=== PATIENT | male | born 1970 | race American Indian/Alaskan Native ===

== ENCOUNTER 2017-11-03 02:25 | Emergency (ER) | payer OTHER ==
[2017-11-03 02:59] VITALS: BP 121/76
[2017-11-03 04:14] LABS: Basophils % (Auto) 0.6 % (0.0-1.8); Eosinophils # (Auto) 0.1 K/mm3 (0.0-0.4); Eosinophils % (Auto) 1.5 % (0.0-4.3); Hematocrit 51.2 % (35.5-45.6); Hemoglobin 17.2 gm/dl (11.8-15.2); Lymphocytes # (Auto) 3.2 K/mm3 (1.2-5.4); Lymphocytes % (Auto) 37.7 % (13.4-35.0); Mean Corpuscular HGB Conc 34 % (32-34); Mean Corpuscular Hemoglobin 30 pg (28-32); Mean Corpuscular Volume 89 fl (84-94); Monocytes # (Auto) 1.3 K/mm3 (0.0-0.8); Monocytes % (Auto) 15.3 % (0.0-7.3); Platelet Count 203 K/mm3 (140-440); Red Blood Count 5.73 M/mm3 (3.65-5.03); Red Cell Distribution Width 13.4 % (13.2-15.2)
[2017-11-03 04:38] LABS: BUN/Creatinine Ratio 16; Blood Urea Nitrogen 21 mg/dL (9-20); Calcium 8.3 mg/dL (8.4-10.2); Hemolysis Index 42
== END 2017-11-03 04:12 | disposition left against medical advice (07) ==
LOC: ED 02:25
DX: R25.2 Cramp and spasm (principal); Z53.21 Procedure and treatment not carried out due to patient leaving prior to being seen by health care provider
CPT/HCPCS: 36415; 80048; 85025

== ENCOUNTER 2017-12-15 12:31 | Emergency (ER) | payer OTHER ==
[2017-12-15 14:27] VITALS: BP 119/80
--- NOTE | 2017-12-15 15:05 | Emergency Department Report ---
ED Extremity Problem HPI - General Chief complaint: Extremity Injury, Lower Stated complaint: ANKLE PAIN Time Seen by Provider: 12/15/17 14:55 Source: patient Mode of arrival: Ambulatory Limitations: No Limitations - History of Present Illness Initial comments: Patient is a 47-year-old male whose presenting with left lateral ankle pain extending down to the lateral foot. Patient states he was walking quite a bit over the weekend with the new para shoes and noticed 2 days ago that his ankle starts to swell and have pain. Patient's pain is 6 out of 10 in severity he is able to stand however he says it's makes the pain worse. History of Same: No Quality: aching Consistency: constant - Related Data Previous Rx's Medication Instructions Recorded Last Taken Type Ibuprofen [Motrin] 600 mg PO Q8H PRN #20 tablet 12/15/17 Unknown Rx traMADol [Ultram] 50 mg PO Q6HR PRN #12 tablet 12/15/17 Unknown Rx Allergies Allergy/AdvReac Type Severity Reaction Status Date / Time Penicillins Allergy Anaphylaxis Verified 11/03/17 03:14 ED Review of Systems ROS: Stated complaint: ANKLE PAIN Other details as noted in HPI Comment: All other systems reviewed and negative ED Past Medical Hx - Past Medical History Hx Hypertension: Yes Hx Congestive Heart Failure: Yes - Surgical History Past Surgical History?: No - Social History Smoking Status: Never Smoker Substance Use Type: None - Medications Home Medications: Home Medications Medication Instructions Recorded Confirmed Last Taken Type Ibuprofen [Motrin] 600 mg PO Q8H PRN #20 tablet 12/15/17 Unknown Rx traMADol [Ultram] 50 mg PO Q6HR PRN #12 tablet 12/15/17 Unknown Rx ED Physical Exam - General Limitations: No Limitations General appearance: alert, in no apparent distress - Head Head exam: Present: atraumatic, normocephalic - Eye Eye exam: Present: normal appearance - ENT ENT exam: Present: mucous membranes moist - Neck Neck exam: Present: normal inspection - Respiratory Respiratory exam: Present: normal lung sounds bilaterally. Absent: respiratory distress, wheezes, rales - Cardiovascular Cardiovascular Exam: Present: regular rate, normal rhythm. Absent: systolic murmur, diastolic murmur, rubs, gallop - GI/Abdominal GI/Abdominal exam: Present: soft, normal bowel sounds. Absent: distended, tenderness, guarding, rebound - Rectal Rectal exam: Present: deferred - Extremities Exam Extremities exam: Present: normal inspection - Back Exam Back exam: Present: normal inspection - Neurological Exam Neurological exam: Present: alert, oriented X3 - Psychiatric Psychiatric exam: Present: normal affect, normal mood - Skin Skin exam: Present: warm, dry, intact, normal color. Absent: rash ED Course Vital Signs 12/15/17 14:25 Temperature 98.1 F Pulse Rate 83 Respiratory 18 Rate Blood Pressure 119/80 O2 Sat by Pulse 98 Oximetry ED Medical Decision Making - Medical Decision Making Patient is not meeting criteria for x-rays U placed in an ankle stirrups and will be discharged home Critical care attestation.: If time is entered above; I have spent that time in minutes in the direct care of this critically ill patient, excluding procedure time. ED Disposition Clinical Impression: Ankle sprain Qualifiers: Encounter type: initial encounter Involved ligament of ankle: other ligament Laterality: left Qualified Code(s): S93.492A - Sprain of other ligament of left ankle, initial encounter Disposition: TO HOME OR SELFCARE Is pt being admited?: No Does the pt Need Aspirin: No Condition: Stable Instructions: Ankle Sprain (ED), Ankle Stirrup Splint (ED), RICE Therapy (ED) Prescriptions: Ibuprofen [Motrin] 600 mg PO Q8H PRN #20 tablet PRN Reason: Pain traMADol [Ultram] 50 mg PO Q6HR PRN #12 tablet PRN Reason: Pain Referrals: PRIMARY CARE, [Primary Care Provider] - 3-5 Days Forms: Work/School Release Form(ED)
== END 2017-12-15 15:10 | disposition home or self-care (01) ==
LOC: ED 12:31
DX: S93.492A Sprain of other ligament of left ankle, initial encounter (principal); I11.0 Hypertensive heart disease with heart failure; I50.9 Heart failure, unspecified; Z88.0 Allergy status to penicillin; X58.XXXA Exposure to other specified factors, initial encounter; Y93.01 Activity, walking, marching and hiking; Y99.8 Other external cause status; Y92.89 Other specified places as the place of occurrence of the external cause

== ENCOUNTER 2022-03-22 05:02 | Emergency (ER) | payer OTHER ==
--- NOTE | 2022-03-22 06:21 | XRay Report ---
CHEST 2 VIEWS INDICATION / CLINICAL INFORMATION: dyspnea. COMPARISON: None available. FINDINGS: SUPPORT DEVICES: None. HEART / MEDIASTINUM: Borderline cardiomegaly. LUNGS / PLEURA: Nonconsolidating airspace opacities within the right lung base likely within the post erior right lower lobe. Lungs otherwise clear. No pneumothorax. BONES: No significant osseous abnormality. ADDITIONAL FINDINGS: No significant additional findings. IMPRESSION: 1. Right lower lobe infectious process could be considered. Atelectasis not excluded. Signer Name: Mick Roach II, MD Signed: 03/22/2022 6:16 AM Workstation Name: [id number]
[2022-03-22 07:17] LABS: Alanine Aminotransferase 18 units/L (7-56); Albumin 3.5 g/dL (3.9-5); BUN/Creatinine Ratio 15; Blood Urea Nitrogen 19 mg/dL (9-20); Calcium 9.6 mg/dL (8.4-10.2); Hemolysis Index 71
[2022-03-22 07:19] LABS: Basophils % (Auto) 0.4 % (0.0-1.8); Eosinophils # (Auto) 0.1 K/mm3 (0.0-0.4); Eosinophils % (Auto) 0.9 % (0.0-4.3); Hematocrit 49.2 % (35.5-45.6); Hemoglobin 16.1 gm/dl (11.8-15.2); Lymphocytes # (Auto) 2.3 K/mm3 (1.2-5.4); Lymphocytes % (Auto) 26.9 % (13.4-35.0); Mean Corpuscular HGB Conc 33 % (32-34); Mean Corpuscular Volume 90 fl (84-94); Monocytes # (Auto) 1.3 K/mm3 (0.0-0.8); Monocytes % (Auto) 15.6 % (0.0-7.3); Platelet Count 244 K/mm3 (140-440); Red Blood Count 5.45 M/mm3 (3.65-5.03)
[2022-03-22] MEDS ORDERED: FUROSEMIDE 40 MG/4 ML INJ IV ONE (10:30)
--- NOTE | 2022-03-22 10:31 | Emergency Department Report ---
ED General Adult HPI - General Chief complaint: Medical Clearance Stated complaint: Fluid overload Time Seen by Provider: 03/22/22 09:41 Source: patient, RN notes reviewed Mode of arrival: Ambulatory Limitations: No Limitations - History of Present Illness Initial comments: The patient was evaluated in the emergency department for symptoms described in the history of present illness. He/she was evaluated in the context of the global COVID-19 pandemic, which necessitated consideration that the patient might be at risk for infection with the virus that causes COVID-19. Institutional protocols and algorithms that pertain to the evaluation of patien ts at risk for COVID-19 are in a state of rapid change based on information released by regulatory bodies including the CDC and federal and state organizations. These policies and algorithms were followed during the patient's care in the emergency department. Please note that these policies, procedures and recommendations changed on a rapid basis. Cardiology: [facility] cardiology The patient is a 51-year-old gentleman with a past medical history of congestive heart failure, unknown ejection fraction, hypertension, diabetes, presenting to the ER today with a complaint of lower extremity swelling and abdominal wall swelling since December. He currently takes Lasix 40 mg once daily. He has recently consumed some soda, but try to switch to water. He does not think he is eating a lot of salt. He brought the symptoms to the attention of his outpatient flower stripper, he reports that his flower stripper put him on Bumex about 3 weeks ago. He took 1 dose of Bumex, but could not tolerate the side effects, and endorses nausea, vomiting and cramping and and therefore discontinued Bumex. He also reports having had an outpatient lower extremity DVT study which is negative for DVT, he reports that he is scheduled to follow-up with his flower stripper next week on March 31. He has mild exertional shortness of breath without physical pain. He denies additional injuries and complaints. He is due to take his carvedilol this morning. -: month(s) Location: abdomen, left, right, lower extremity Severity scale (0 -10): 0 Consistency: constant Improves with: rest Worsens with: movement - Related Data Previous Rx's Medication Instructions Recorded Last Taken Type Furosemide [Lasix] 40 mg PO BID #60 tab 03/22/22 Unknown Rx Allergies Allergy/AdvReac Type Severity Reaction Status Date / Time Penicillins Allergy Anaphylaxis Verified 11/03/17 03:14 ED Review of Systems ROS: Stated complaint: FLUID Other details as noted in HPI Constitutional: denies: fever Eyes: denies: eye discharge ENT: denies: congestion Respiratory: cough, shortness of breath, SOB with exertion, SOB at rest. denies: wheezing Cardiovascular: dyspnea on exertion, edema. denies: chest pain Gastrointestinal: denies: abdominal pain, hematemesis, melena, hematochezia Genitourinary: denies: dysuria Musculoskeletal: denies: back pain Neurological: denies: weakness Hematological/Lymphatic: denies: easy bleeding ED Past Medical Hx - Past Medical History Previous Medical History?: Yes Hx Hypertension: Yes Hx Congestive Heart Failure: Yes Hx Diabetes: Yes - Social History Smoking Status: Never Smoker Substance Use Type: None - Medications Home Medications: Home Medications Medication Instructions Recorded Confirmed Last Taken Type Furosemide [Lasix] 40 mg PO BID #60 tab 03/22/22 Unknown Rx ED Physical Exam - General Limitations: No Limitations General appearance: alert, in no apparent distress, obese - Head Head exam: Present: atraumatic, normocephalic - Eye Eye exam: Present: normal appearance, EOMI. Absent: nystagmus - ENT ENT exam: Present: normal exam, normal orophraynx, mucous membranes moist, normal external ear exam - Neck Neck exam: Present: normal inspection, full ROM. Absent: tenderness, meningismus - Respiratory Respiratory exam: Present: rales (Very faint rales noted at the bases). Absent: respiratory distress, wheezes, stridor - Cardiovascular Cardiovascular Exam: Present: tachycardia, normal heart sounds, JVD. Absent: systolic murmur, diastolic murmur, rubs, gallop - GI/Abdominal GI/Abdominal exam: Present: soft, other (Abdominal wall anasarca is noted). Absent: distended, tenderness, guarding, rebound, rigid, pulsatile mass - Rectal Rectal exam: Present: deferred - Extremities Exam Extremities exam: Present: normal inspection, full ROM, pedal edema (3+ edema noted in the bilateral lower extremities), other (2+ pulses noted in the bilateral upper and lower extremities. There is no palpable cord. negative Homans sign. Muscular compartments are soft. The pelvis is stable.). Absent: calf tenderness - Back Exam Back exam: Present: normal inspection. Absent: tenderness, CVA tenderness (R), CVA tenderness (L), paraspinal tenderness, vertebral tenderness - Neurological Exam Neurological exam: Present: alert, oriented X3, normal gait, other (No facial droop. Tongue midline. Extraocular movements intact bilaterally. Facial sensation intact to light touch in V1, V2, V3 distribution bilaterally. 5 and a 5 strength in 4 extremities. Sensation intact to light touch in 4 extremities.). Absent: motor sensory deficit - Psychiatric Psychiatric exam: Present: normal affect, normal mood - Skin Skin exam: Present: warm, dry, intact, normal color. Absent: rash ED Course Vital Signs 03/22/22 03/22/22 03/22/22 05:07 09:53 11:39 Temperature 97.5 F L 98.7 F Pulse Rate 109 H 107 H Respiratory 18 16 Rate Blood Pressure 123/94 Blood Pressure 128/89 [Right] O2 Sat by Pulse 98 98 Oximetry O2 Sat by Pulse 99 Oximetry [ Digit-Finger] 03/22/22 11:59 Temperature Pulse Rate 93 H Respiratory 18 Rate Blood Pressure Blood Pressure 121/83 [Right] O2 Sat by Pulse 99 Oximetry O2 Sat by Pulse Oximetry [ Digit-Finger] - Pulse Oximetry Interpretation Digit-Finger Initial Pulse Oximetry Readin O2 Sat by Pulse Oximetry: 99 Actions Taken: none ED Medical Decision Making - Lab Data Result diagrams: 03/22/22 06:29 03/22/22 06:29 Vital Signs 03/22/22 03/22/22 05:07 09:53 Temperature 97.5 F L 98.7 F Pulse Rate 109 H 107 H Respiratory 18 16 Rate Blood Pressure 123/94 Blood Pressure 128/89 [Right] O2 Sat by Pulse 98 98 Oximetry Lab Results 03/22/22 03/22/22 03/22/22 Range/Units 06:29 06:29 09:45 WBC 8.6 (4.5-11.0) K/mm3 RBC 5.45 H (3.65-5.03) M/mm3 Hgb 16.1 H (11.8-15.2) gm/dl Hct 49.2 H (35.5-45.6) % MCV 90 (84-94) fl MCH 30 (28-32) pg MCHC 33 (32-34) % RDW 16.0 H (13.2-15.2) % Plt Count 244 (140-440) K/mm3 Lymph % (Auto) 26.9 (13.4-35.0) % [place] % (Auto) 15.6 H (0.0-7.3) % Eos % (Auto) 0.9 (0.0-4.3) % Baso % (Auto) 0.4 (0.0-1.8) % Lymph # (Auto) 2.3 (1.2-5.4) K/mm3 [place] # (Auto) 1.3 H (0.0-0.8) K/mm3 Eos # (Auto) 0.1 (0.0-0.4) K/mm3 Baso # (Auto) 0.0 (0.0-0.1) K/mm3 Seg Neutrophils % 56.2 (40.0-70.0) % Seg Neutrophils # 4.8 (1.8-7.7) K/mm3 Sodium 142 (137-145) mmol/L Potassium 5.1 H (3.6-5.0) mmol/L Chloride 102.1 (98-107) mmol/L Carbon Dioxide 28 (22-30) mmol/L Anion Gap 17 mmol/L BUN 19 (9-20) mg/dL Creatinine 1.3 (0.8-1.3) mg/dL Estimated GFR > 60 ml/min BUN/Creatinine Ratio 15 % Glucose 161 H (75-100) mg/dL POC Glucose 145 H (70-105) mg/dL Calcium 9.6 (8.4-10.2) mg/dL Total Bilirubin 1.30 H (0.1-1.2) mg/dL AST 31 (5-40) units/L ALT 18 (7-56) units/L Alkaline Phosphatase 133 H (35-129) units/L Troponin T 0.024 (0.00-0.029) ng/mL NT-Pro-B Natriuret Pep 7162 H (0-900) pg/mL Total Protein 7.0 (6.3-8.2) g/dL Albumin 3.5 L (3.9-5) g/dL Albumin/Globulin Ratio 1.0 % - EKG Data -: EKG Interpreted by Ak EKG shows normal: sinus rhythm Rate: normal - EKG Data 03/22/22 11:28 The EKG is interpreted at 05: 3 0 a.m. Sinus rhythm, rate 105 bpm. Leftward axis deviation. Poor R wave progression. Interventricular conduction delay. PVC. Abnormal EKG. Denies chest pain. Not a STEMI - Radiology Data Radiology results: pending, report reviewed, image reviewed CHEST 2 VIEWS INDICATION / CLINICAL INFORMATION: dyspnea. COMPARISON: None available. FINDINGS: SUPPORT DEVICES: None. HEART / MEDIASTINUM: Borderline cardiomegaly. LUNGS / PLEURA: Nonconsolidating airspace opacities within the right lung base likely within the posterior right lower lobe. Lungs otherwise clear. No pneumothorax. BONES: No significant osseous abnormality. ADDITIONAL FINDINGS: No significant additional findings. IMPRESSION: 1. Right lower lobe infectious process could be considered. Atelectasis not excluded. Signer Name: Mick Roach II, MD Signed: 03/22/2022 5:16 AM Workstation Name: [id number] - Medical Decision Making Differential diagnosis, including but not limited to: Lower extremity edema, co ngestive heart failure, fluid overload Assessment and plan: 51-year-old gentleman, with improving tachycardia, heart rate 100 to 101 bpm, who denies DVT/PE risk factors, who is low risk by Wells criteria for pulmonary embolism, who reports recent negative outpatient DVT study, essentially presenting with congestive heart failure symptoms, present since December; symptoms present for about 2 months. Patient given trial of ambulation and ambulated for 5 minutes without desaturation. Laboratory studies are reviewed and appreciated. I do not clinically suspect pneumonia at this time. I suspect congestive heart failure exacerbation without hypoxic respiratory failure. I had extensive discussion with the patient regarding various management options and strategy. Patient has close outpatient follow-up with his flower stripper, and I think it would be reasonable to increase his Lasix dose to 40 mg twice daily, heart dissipate in fluid and salt restriction, and closely follow-up with his outpatient primary care doctor/flower stripper. However, I did offer the patient admission, if he felt strongly about it. The patient prefers to be discharged and managed as an outpatient, he has close outpatient follow-up, and he is reliable to return. Therefore, through shared decision-making, we agreed to discharge this patient to increase his Lasix dose, and closely follow-up with his outpatient flower stripper as scheduled. I contacted his primary flower stripper, Dr. Otf Payton; I discussed the patient's history, physical, laboratory studies and imaging studies and clinical impression. He is in agree ment with the plan of care. All questions answered for patient. Return precautions are reviewed. Plan to discharge with salt restriction, fluid restriction, increase Lasix to 40 mg twice daily. Return precautions are reviewed. All questions are answered. Critical Care Time: Yes Critical care time in (mins) excluding proc time.: 35 Critical care attestation.: If time is entered above; I have spent that time in minutes in the direct care of this critically ill patient, excluding procedure time. ED Disposition Clinical Impression: Congestive heart failure, Lower extremity edema Disposition: HOME / SELF CARE / HOMELESS Is pt being admited?: No Does the pt Need Aspirin: No Condition: Good Instructions: Heart Failure Eating Plan Additional Instructions: Patient is going to have Lasix dose increased to 40 mg twice daily. Please make certain to restrict fluid and salt as previously discussed with your outpatient primary care doctor or flower stripper. Please continue current outpatient medications otherwise, do not take Bumex medication secondary to side effect profile. Please follow-up with your outpatient flower stripper on March 31 as scheduled, or before. Please return to the emergency room right away with new pain, worsened pain, migration of pain, projectile vomiting, change in mental status, confusion, i nability tolerate liquid feeds, new, worsened or different symptoms not present on the initial emergency room evaluation patient may also purchase [id number] compression stockings for lower extremity swelling. Prescriptions: Furosemide [Lasix] 40 mg PO BID #60 tab Referrals: BONITA PAYTON MD [Staff Physician] - 03/31/22 Forms: Work/School Release Form(ED)
[2022-03-22] MEDS ORDERED: carvediloL 12.5 MG TAB PO SCH (11:00)
[2022-03-22 12:01] VITALS: BP 121/83
--- NOTE | 2022-03-22 20:16 | Electrocardiograph Report ---
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
== END 2022-03-22 11:59 | disposition home or self-care (01) ==
LOC: ED 05:02
DX: R60.0 Localized edema (principal); I11.0 Hypertensive heart disease with heart failure; I50.9 Heart failure, unspecified; E11.9 Type 2 diabetes mellitus without complications; Z88.0 Allergy status to penicillin
CPT/HCPCS: 36415; 71046; 80053; 82962; 83880; 84484; 85025; 93005; 96374; 99284; J1940